=== PATIENT | male | born 2000 | race Caucasian/White ===

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

== ENCOUNTER 2021-05-30 14:09 | Emergency (ER) | payer BC ==
[2021-05-30 14:24] VITALS: BP 118/81; PULSE 88; RESP 20; TEMP 98.7
--- NOTE | 2021-05-30 14:49 | ED ---
General Adult HPI - General Chief complaint: Skin/Abscess/Foreign Body Stated complaint: Right Thumb Infection Time Seen by Provider: 05/30/21 14:28 Source: patient, RN notes reviewed Mode of arrival: ambulatory Limitations: no limitations - History of Present Illness Initial comments: Patient is a 21-year-old male presented to the emergency room today with a chief complaint of infection to the right thumb. Patient does admit that he picks at the cuticles. Patient does admit that, unfortunately the last few days. He states he tried to strain but only got little drainage out. Patient denies any other complaint or any other symptoms at this time. - Related Data Previous Rx's Medication Instructions Recorded Cephalexin [Keflex] 500 mg PO Q8HR 10 Days #30 cap 05/30/21 Allergies Allergy/AdvReac Type Severity Reaction Status Date / Time No Known Allergies Allergy Verified 05/30/21 14:21 Review of Systems ROS Statement: Those systems with pertinent positive or pertinent negative responses have been documented in the HPI. ROS Other: All systems not noted in ROS Statement are negative. Past Medical History Past Medical History: No Reported History History of Any Multi-Drug Resistant Organisms: MRSA Date of last positivie culture/infection: 10/04/15 MDRO Source:: nose Past Surgical History: Orthopedic Surgery Additional Past Surgical History / Comment(s): ORIF RIGHT HAND Past Anesthesia/Blood Transfusion Reactions: No Reported Reaction Past Psychological History: Anxiety, Depression Smoking Status: Current every day smoker Past Alcohol Use History: Occasional Past Drug Use History: Marijuana - Past Family History Mother Family Medical History: No Reported History General Exam - General Exam Comments Initial Comments: General: The patient is awake and alert, in no distress, and does not appear acutely ill. Eye: extra-ocular movements are intact.There is normal conjunctiva bilaterally. No signs of icterus. Ears, nose, mouth and throat: There are moist mucous membranes and no oral lesions. Respiratory: , respirations are non-labored, breath sounds are equal. Musculoskeletal: Normal ROM. Strength 5/5. Sensation intact. Neurological: A&O x 3. CN II-XII intact, There are no obvious motor or sensory deficits. Coordination appears grossly intact. Speech is normal. Skin: Patient does have a paronychia infection to the right thumb. Psychiatric: Cooperative, appropriate mood & affect, normal judgment. Limitations: no limitations Course Vital Signs 05/30/21 14:21 Temperature 98.7 F Pulse Rate 88 Respiratory 20 Rate Blood Pressure 118/81 O2 Sat by Pulse 99 Oximetry Procedures - Procedures Initial comment: Patient's right thumb was cleaned here the emergency room Betadine. An 11 blade was used to make small incision to paronychia of the right thumb. Patient tolerated well. Medical Decision Making - Medical Decision Making Patient does have 11 blade used to make small incision to the right thumb where paronychia was present. Small amount of drainage removed. Patient tolerated well. Will be started on antibiotics. Advised warm compresses or soaks. Advised to return to the emergency room symptoms increase worsen or for any other concerns. Patient states understanding and is in agreement. Disposition Clinical Impression: Paronychia Disposition: HOME SELF-CARE Condition: Good Instructions (If sedation given, give patient instructions): Paronychia (ED) Additional Instructions: Please use warm soaks as discussed. Use antibiotic as prescribed. Return to emergency room symptoms increase worsen or for any other concerns. Prescriptions: Cephalexin [Keflex] 500 mg PO Q8HR 10 Days #30 cap Is patient prescribed a controlled substance at d/c from ED?: No If prescribed controlled substance>3 days was MAPS reviewed?: Prescribed <3 Days Referrals: None,Stated [Primary Care Provider] - 1-2 days Time of Disposition: 14:49
== END 2021-05-30 14:57 | disposition home or self-care (01) ==
LOC: EC 14:09
DX: L03.011 Cellulitis of right finger (principal); F32.A Depression, unspecified; F41.9 Anxiety disorder, unspecified; F17.200 Nicotine dependence, unspecified, uncomplicated; F12.90 Cannabis use, unspecified, uncomplicated
CPT/HCPCS: 10060; 99283

== ENCOUNTER 2022-04-21 12:25 | Emergency (ER) | payer BC ==
[2022-04-21 12:32] VITALS: TEMP 98.9
[2022-04-21] MEDS ORDERED: HYDROcodone/APAP 5-325MG 1 EACH TAB PO STA (12:40)
--- NOTE | 2022-04-21 12:42 | ED ---
Upper Extremity HPI - General Chief Complaint: Extremity Injury, Upper Stated Complaint: rt hand injury Time Seen by Provider: 04/21/22 12:35 Source: patient, RN notes reviewed Mode of arrival: ambulatory Limitations: no limitations - History of Present Illness Initial Comments: 22-year-old male presents emergency Department with chief complaint of right hand injury. Patient states he slipped on some ice landing onto his hand and he states it was more of a punching type reaction to the ground. Patient states that he said prior fracture and surgery years ago he states he had a pin which was removed. Patient states that there is bruising, swelling and pain with range of motion that extends into the wrist. Patient denies any paresthesias no other complaints. - Related Data Previous Rx's Medication Instructions Recorded Cephalexin [Keflex] 500 mg PO Q8HR 10 Days #30 cap 05/30/21 Allergies Allergy/AdvReac Type Severity Reaction Status Date / Time No Known Allergies Allergy Verified 04/21/22 12:33 Review of Systems ROS Statement: Those systems with pertinent positive or pertinent negative responses have been documented in the HPI. ROS Other: All systems not noted in ROS Statement are negative. Past Medical History Past Medical History: No Reported History History of Any Multi-Drug Resistant Organisms: MRSA Date of last positivie culture/infection: 10/04/15 MDRO Source:: nose Past Surgical History: Orthopedic Surgery Additional Past Surgical History / Comment(s): ORIF RIGHT HAND Past Anesthesia/Blood Transfusion Reactions: No Reported Reaction Past Psychological History: Anxiety, Depression Smoking Status: Current every day smoker Past Alcohol Use History: Occasional Past Drug Use History: Marijuana - Past Family History Mother Family Medical History: No Reported History General Exam Limitations: no limitations General appearance: alert, in no apparent distress Head exam: Present: atraumatic, normocephalic, normal inspection Eye exam: Present: normal appearance, PERRL, EOMI. Absent: scleral icterus, conjunctival injection, periorbital swelling ENT exam: Present: normal exam, normal oropharynx, mucous membranes moist Neck exam: Present: normal inspection, full ROM. Absent: tenderness, meningismus, lymphadenopathy Respiratory exam: Present: normal lung sounds bilaterally. Absent: respiratory distress, wheezes, rales, rhonchi, stridor Cardiovascular Exam: Present: regular rate, normal rhythm, normal heart sounds. Absent: systolic murmur, diastolic murmur, rubs, gallop, clicks Extremities exam: Present: other (Right hand there is ecchymosis noted, old surgical scar over the fifth metacarpal region, there is tenderness of palpation there is no mid to proximal forearm tenderness) Course Vital Signs 04/21/22 04/21/22 12:29 13:28 Temperature 98.9 F Pulse Rate 79 86 Respiratory 18 16 Rate Blood Pressure 151/72 124/80 O2 Sat by Pulse 100 97 Oximetry Procedures - Orthopedic Splinting/Casting Injury #1 Side: right Upper Extremity Injury Location: short arm, hand Upper Extremity Immobilizer: ulnar gutter, synthetic pre-padded splint Medical Decision Making - Medical Decision Making Was pt. sent in by a medical professional or institution (, [facility], [employer]ER, urgent care, hospital, or retirement...) When possible be specific @ -No Did you speak to anyone other than the patient for history (EMS, parent, family, police, friend...)? What history was obtained from this source @ -No Did you review nursing and triage notes (agree or disagree)? Why? @ -I reviewed and agree with nursing and triage notes Were old charts reviewed (outside hosp., previous admission, EMS record, old EKG, old radiological studies, urgent care reports/EKG's, retirement records)? Report findings @ -No old charts were reviewed Differential Diagnosis (chest pain, altered mental status, abdominal pain women, abdominal pain men, vaginal bleeding, weakness, fever, dyspnea, syncope, headache, dizziness, GI bleed, back pain, seizure, CVA, palpatations, mental health)? @ -Right hand sprain, right hand fracture EKG interpreted by me (3pts min.). @ -None X-rays interpreted by me (1pt min.). @ -X-ray right hand shows fifth metacarpal base fracture done CT interpreted by me (1pt min.). @ -None done U/S interpreted by me (1pt. min.). @ -None done What testing was considered but not performed or refused? (CT, X-rays, U/S, labs)? Why? @ -None What meds were considered but not given or refused? Why? @ -None Did you discuss the management of the patient with other professionals (professionals i.e. , PA, COAL WASHER TENDER, lab, RT, psych nurse, long term care social worker, candy bar attendant, teacher, marketing and communications officer, insurance case manager)? Give summary @ -No Was smoking cessation discussed for >3mins.? @ -No Was critical care preformed (if so, how long)? @ -No Were there social determinants of health that impacted care today? How? (Homel essness, low income, unemployed, alcoholism, drug addiction, transportation, low edu. Level, literacy, decrease access to med. care, detention, rehab)? @ -No Was there de-escalation of care discussed even if they declined (Discuss DNR or withdrawal of care, Hospice)? DNR status @ -No What co-morbidities impacted this encounter? (DM, HTN, Smoking, COPD, CAD, Cancer, CVA, ARF, Chemo, Hep., AIDS, mental health diagnosis, sleep apnea, morbid obesity)? @ -None Was patient admitted / discharged? Hospital course, mention meds given and route, prescriptions, significant lab abnormalities, going to OR and other pertinent info. @ -Discharge patient is right-hand fracture was splinted and will follow-up with orthopedics. Patient requested a STI treatment for gonorrhea chlamydia upon discharge. Undiagnosed new problem with uncertain prognosis? @ -No Drug Therapy requiring intensive monitoring for toxicity (Heparin, Nitro, Insulin, Cardizem)? @ -No Were any procedures done? @ -See splinting procedure Diagnosis/symptom? @ -Right fifth metacarpal base fracture Acute, or Chronic, or Acute on Chronic? @ -Acute Uncomplicated (without systemic symptoms) or Complicated (systemic symptoms)? @ -Uncomplicated Side effects of treatment? @ -No Exacerbation, Progression, or Severe Exacerbation? @ -No Poses a threat to life or bodily function? How? (Chest pain, [place], [place], pneumonia, PE, COPD, DKA, ARF, appy, cholecystitis, CVA, Diverticulitis, Homicidal, Suicidal, threat to staff... and all critical care pts) @ -No Disposition Clinical Impression: Right hand fracture Disposition: HOME SELF-CARE Condition: Stable Instructions (If sedation given, give patient instructions): Hand Fracture (ED) Additional Instructions: Please return to the Emergency Department if symptoms worsen or any other concerns. Is patient prescribed a controlled substance at d/c from ED?: No Referrals: Antonia Saenz DO [Doctor of Osteopathic Medicine] - 1-2 days Time of Disposition: 13:22
--- NOTE | 2022-04-21 13:07 | XR ---
EXAMINATION TYPE: XR hand complete RT DATE OF EXAM: 04/21/2022 1:00 PM INDICATION: Patient age:Male; 22 years old; Reason for study: trauma, prior fracture; [facility]. COMPARISON: Right hand radiograph 07/19/2018. TECHNIQUE: Frontal, lateral and oblique views of the right hand were obtained. FINDINGS: Acute minimally displaced proximal fifth metacarpal fracture with mild dorsal apex angulati on. There is associated soft tissue edema. No dislocation. No radiopaque foreign body. IMPRESSION: Acute minimally displaced proximal fifth metacarpal fracture.
[2022-04-21] MEDS ORDERED: AZITHROMYCIN 250 MG TAB PO STA (13:20)
[2022-04-21] MEDS ORDERED: cefTRIAXone 1,000 MG VIAL (IM USE) IM STA (13:20)
[2022-04-21] MEDS ORDERED: ACET/COD 300 MG/30 MG STARTER PACK 6 TAB BTL PO STA (13:21)
[2022-04-21 13:29] VITALS: BP 124/80; PULSE 86; RESP 16
== END 2022-04-21 13:37 | disposition home or self-care (01) ==
LOC: EC 12:25
DX: S62.91XA Unspecified fracture of right hand, initial encounter for closed fracture (principal); F41.9 Anxiety disorder, unspecified; F32.A Depression, unspecified; F17.200 Nicotine dependence, unspecified, uncomplicated; F12.90 Cannabis use, unspecified, uncomplicated; W01.0XXA Fall on same level from slipping, tripping and stumbling without subsequent striking against object, initial encounter
CPT/HCPCS: 73130; 99283; 96372; J0696